=== PATIENT | male | born 1955 | race Caucasian/White ===

== ENCOUNTER 2019-01-11 22:28 | Inpatient (IN) ==
[2019-01-12] MEDS ORDERED: ALBUTEROL/IPRATROPIUM 3 ML NEB RESP TX STA (00:31)
[2019-01-12] MEDS ORDERED: ONDANSETRON 4 MG/2 ML VIAL IV STA (00:31)
[2019-01-12] MEDS ORDERED: methylPREDNISolone SOD SUC 125 MG/2 ML VIAL IV STA (00:31)
[2019-01-12] MEDS ORDERED: FUROSEMIDE 100 MG/10 ML VIAL IV STA (00:31)
[2019-01-12 00:58] LABS: Basophils # 0.1 10*3/uL (0.0-0.2); Basophils % 0.9 % (0.0-0.8); Eosinophils # 0.2 10*3/uL (0.0-0.87); Eosinophils % 2.6 % (0.00-10.9); Immature Granulocytes % 0.4 %; Immature Granulocytes Absolute 0.03 #; Lymphocytes % 12.8 % (21.2-54.2); Mean Corpuscular HGB Conc 34.6 GM/DL (32-36); Mean Corpuscular Volume 83.3 FL (87-102); Monocytes % 8.3 % (1.7-12.7); Platelet Count 278 T/CUMM (130-400); Red Blood Count 3.12 MC/CUMM (3.8-5.5); Red Cell Distribution Width 12.8 % (9.3-17.3); White Blood Count 7.6 T/CUMM (4-12)
[2019-01-12 01:06] LABS: Apearance,Urine CLEAR (Clear); Bacteria,Urine Occasional /HPF (Few); Bilirubin,Urine Negative (Negative); Blood, Urine Small mg/dL (Negative); Glucose,Urine (UA) Negative (Negative); Ketones,Urine Negative (Negative); Nitrite,Urine Negative (Negative); Protein,Urine 100 MG/DL; RBC,Urine 2 /HPF (0-4); Urine Color Straw (Yellow); Urine Specific Gravity 1.005 (1.001-1.035); Urine Urobilinogen < 2.0 EU/DL (0.2-1.0)
[2019-01-12 01:08] LABS: Barbiturates Screen,Urine Negative (Negative); Benzodiazepines Screen,Urine Negative (Negative); Cannabinoid Screen,Urine Negative (Negative); Opiate Screen,Urine Negative (Negative); Phencyclidine Screen,Urine Negative (Negative)
[2019-01-12 01:16] LABS: Albumin 3.2 G/DL (3.4-5.0); Bilirubin,Total 0.7 MG/DL (0.2-1.0); Calcium 9.3 MG/DL (8.5-10.1); Osmolality,Calculated 290.7 MOS/KG (273-304)
[2019-01-12] MEDS ORDERED: hydrALAZINE 20 MG/1 ML VIAL ONE (02:17)
[2019-01-12] MEDS ORDERED: hydrALAZINE 20 MG/1 ML VIAL IV STA (02:20)
[2019-01-12] MEDS ORDERED: ONDANSETRON 4 MG/2 ML VIAL IV PRN (02:31)
[2019-01-12] MEDS ORDERED: ACETAMINOPHEN 325 MG TABLET PO PRN (02:31)
[2019-01-12] MEDS ORDERED: GLUCAGON 1 MG VIAL IM PRN (02:31)
[2019-01-12] MEDS ORDERED: DEXTROSE 50% 25 GM/50 ML VIAL IV PRN (02:31)
[2019-01-12 03:20] LABS: Risk Ratio 2.7; Thyroid Stimulating Hormone 11.1 uIU/ml (0.358-3.74); VLDL CHOLESTEROL 14.8 MG/DL
[2019-01-12] MEDS ORDERED: INFLUENZA VIRUS VACCINE 0.5 ML SYRINGE IM ONE (04:01)
[2019-01-12] MEDS: FUROSEMIDE 40 MG/4 ML VIAL IV SCH ×2 (09:44→16:03)
[2019-01-12] MEDS: ENOXAPARIN 40 MG/0.4 ML SYRINGE SUBCUT SCH (09:47)
[2019-01-12] MEDS: INSULIN REGULAR 100 UNIT/ML SUBCUT SCH ×4 (09:48→20:29)
[2019-01-12] MEDS: carvediloL 12.5 MG TABLET PO SCH ×2 (09:48→20:29)
[2019-01-12] MEDS: PANTOPRAZOLE 40 MG TABLET PO SCH (09:48)
[2019-01-12] MEDS: DOXYCYCLINE HYCLATE 100 MG CAPSULE PO SCH ×2 (12:35→16:02)
[2019-01-12] MEDS: ASPIRIN EC 81 MG TABLET PO SCH (12:35)
[2019-01-12] MEDS: hydrALAZINE 25 MG TABLET PO SCH ×2 (12:35→20:29)
[2019-01-12] MEDS ORDERED: cefTRIAXone 2,000 MG in SYRINGE 1 EACH IV SCH (13:00)
[2019-01-12] MEDS: TAMSULOSIN 0.4 MG CAPSULE PO SCH (20:29)
[2019-01-13 04:48] LABS: Basophils % 0.4 % (0.0-0.8); Eosinophils # 0.1 10*3/uL (0.0-0.87); Eosinophils % 1.2 % (0.00-10.9); Hematocrit 21.4 VOL% (42.0-52.0); Hemoglobin 7.6 GM/DL (14.0-18.0); Immature Granulocytes % 0.3 %; Immature Granulocytes Absolute 0.02 #; Lymphocytes % 13.5 % (21.2-54.2); Mean Corpuscular HGB Conc 35.5 GM/DL (32-36); Mean Corpuscular Volume 81.7 FL (87-102); Mean Platelet Volume 10.5 FL (9.6-12.0); Monocytes % 9.3 % (1.7-12.7); Neutrophils % 75.3 % (38.7-73.9); Platelet Count 257 T/CUMM (130-400); Red Blood Count 2.62 MC/CUMM (3.8-5.5); Red Cell Distribution Width 12.9 % (9.3-17.3); White Blood Count 7.4 T/CUMM (4-12)
[2019-01-13 05:35] LABS: Calcium 8.5 MG/DL (8.5-10.1); Free T4 (Free Thyroxine) 0.95 NG/DL (0.76-1.46); Osmolality,Calculated 296.3 MOS/KG (273-304)
[2019-01-13 05:37] LABS: Folate 16.1 NG/ML (5.4-24.0); Vitamin B12 1837 PG/ML (211-911)
[2019-01-13 05:57] LABS: Sedimentation Rate-Westergren 85 MM/HR (0-20)
[2019-01-13 06:23] LABS: Ferritin 336.8 ng/ml (26-388)
[2019-01-13] MEDS ORDERED: POTASSIUM CHLORIDE 20 MEQ TABLET PO SCH (09:00)
[2019-01-13] MEDS: FUROSEMIDE 40 MG/4 ML VIAL IV SCH (09:37)
[2019-01-13] MEDS: INSULIN REGULAR 100 UNIT/ML SUBCUT SCH ×4 (09:37→20:58)
[2019-01-13] MEDS: ASPIRIN EC 81 MG TABLET PO SCH (09:38)
[2019-01-13] MEDS: hydrALAZINE 25 MG TABLET PO SCH ×2 (09:38→20:57)
[2019-01-13] MEDS: carvediloL 12.5 MG TABLET PO SCH ×2 (09:38→20:57)
[2019-01-13] MEDS: ENOXAPARIN 40 MG/0.4 ML SYRINGE SUBCUT SCH (09:38)
[2019-01-13] MEDS: DOXYCYCLINE HYCLATE 100 MG CAPSULE PO SCH (09:38)
[2019-01-13] MEDS: PANTOPRAZOLE 40 MG TABLET PO SCH (09:45)
[2019-01-13] MEDS: FLUTICASONE 50 MCG NASAL SPRAY 16 GM BOTTLE BOTH NARES SCH (10:10)
[2019-01-13] MEDS ORDERED: SODIUM CHLORIDE 0.9% 1,000 ML IV PRN (10:29)
[2019-01-13] MEDS: DOCUSATE SODIUM 100 MG CAPSULE PO SCH ×2 (12:13→20:57)
[2019-01-13] MEDS: LACTULOSE 20 GM/30 ML UDCUP PO SCH ×2 (12:13→20:58)
[2019-01-13] MEDS: POLYETHYLENE GLYCOL POWDER 17 GM PACK PO SCH ×2 (12:13→20:58)
[2019-01-13 16:38] LABS: Hemoglobin 9.1 GM/DL (14.0-18.0)
[2019-01-13] MEDS: TAMSULOSIN 0.4 MG CAPSULE PO SCH (20:57)
[2019-01-14 04:49] LABS: Basophils # 0.1 10*3/uL (0.0-0.2); Basophils % 0.8 % (0.0-0.8); Eosinophils # 0.3 10*3/uL (0.0-0.87); Eosinophils % 4.9 % (0.00-10.9); Hemoglobin 8.9 GM/DL (14.0-18.0); Immature Granulocytes % 0.3 %; Immature Granulocytes Absolute 0.02 #; Lymphocytes # 0.8 10*3/uL (1.4-4.0); Lymphocytes % 12.7 % (21.2-54.2); Mean Corpuscular HGB Conc 34.2 GM/DL (32-36); Mean Corpuscular Volume 83.3 FL (87-102); Mean Platelet Volume 10.4 FL (9.6-12.0); Monocytes % 11.5 % (1.7-12.7); Neutrophils % 69.8 % (38.7-73.9); Platelet Count 266 T/CUMM (130-400); Red Blood Count 3.12 MC/CUMM (3.8-5.5); Red Cell Distribution Width 12.9 % (9.3-17.3); White Blood Count 6.5 T/CUMM (4-12)
[2019-01-14 05:10] LABS: Calcium 8.1 MG/DL (8.5-10.1); Osmolality,Calculated 295.3 MOS/KG (273-304)
[2019-01-14] MEDS: LEVOTHYROXINE 25 MCG TABLET PO SCH (05:56)
[2019-01-14] MEDS: INSULIN REGULAR 100 UNIT/ML SUBCUT SCH ×4 (07:43→20:49)
[2019-01-14] MEDS: FUROSEMIDE 40 MG TABLET PO SCH (08:32)
[2019-01-14] MEDS: carvediloL 12.5 MG TABLET PO SCH ×2 (08:32→20:49)
[2019-01-14] MEDS: POTASSIUM CHLORIDE 20 MEQ TABLET PO SCH (08:32)
[2019-01-14] MEDS: ENOXAPARIN 40 MG/0.4 ML SYRINGE SUBCUT SCH (08:32)
[2019-01-14] MEDS: FLUTICASONE 50 MCG NASAL SPRAY 16 GM BOTTLE BOTH NARES SCH (08:32)
[2019-01-14] MEDS: POLYETHYLENE GLYCOL POWDER 17 GM PACK PO SCH ×2 (08:32→20:49)
[2019-01-14] MEDS: DOCUSATE SODIUM 100 MG CAPSULE PO SCH ×2 (08:32→20:49)
[2019-01-14] MEDS: LACTULOSE 20 GM/30 ML UDCUP PO SCH ×2 (08:32→20:49)
[2019-01-14] MEDS: ASPIRIN EC 81 MG TABLET PO SCH (08:32)
[2019-01-14] MEDS: hydrALAZINE 25 MG TABLET PO SCH (08:32)
[2019-01-14] MEDS: PANTOPRAZOLE 40 MG TABLET PO SCH (08:33)
[2019-01-14] MEDS ORDERED: hydrALAZINE 25 MG TABLET PO ONE (13:00)
[2019-01-14] MEDS: TAMSULOSIN 0.4 MG CAPSULE PO SCH (20:49)
[2019-01-15 04:00] LABS: Soluble Transf Receptor (sTfR) 3.7 mg/L (1.8 - 4.6)
[2019-01-15 05:53] LABS: Basophils # 0.1 10*3/uL (0.0-0.2); Basophils % 1.1 % (0.0-0.8); Eosinophils # 0.2 10*3/uL (0.0-0.87); Eosinophils % 4.1 % (0.00-10.9); Hematocrit 25.9 VOL% (42.0-52.0); Hemoglobin 8.9 GM/DL (14.0-18.0); Immature Granulocytes % 0.2 %; Immature Granulocytes Absolute 0.01 #; Lymphocytes # 0.7 10*3/uL (1.4-4.0); Lymphocytes % 15.3 % (21.2-54.2); Mean Corpuscular HGB Conc 34.4 GM/DL (32-36); Mean Corpuscular Volume 83.3 FL (87-102); Mean Platelet Volume 10.3 FL (9.6-12.0); Monocytes % 16.7 % (1.7-12.7); Neutrophils % 62.6 % (38.7-73.9); Platelet Count 247 T/CUMM (130-400); Red Blood Count 3.11 MC/CUMM (3.8-5.5); Red Cell Distribution Width 13.1 % (9.3-17.3); White Blood Count 4.4 T/CUMM (4-12)
[2019-01-15 06:25] LABS: Calcium 8.6 MG/DL (8.5-10.1); Osmolality,Calculated 295.8 MOS/KG (273-304)
[2019-01-15 06:26] LABS: Eosinophils 4 % (0-10); Lymphocytes 18 % (20-55); Segmented Neutrophils 75 % (50-85); Total Cells Counted 100
[2019-01-15 06:27] LABS: Platelet Estimate Normal; Polychromasia Few
[2019-01-15] MEDS: LEVOTHYROXINE 25 MCG TABLET PO SCH (06:27)
[2019-01-15] MEDS: INSULIN REGULAR 100 UNIT/ML SUBCUT SCH ×2 (08:59→13:13)
[2019-01-15] MEDS: ENOXAPARIN 40 MG/0.4 ML SYRINGE SUBCUT SCH (09:07)
[2019-01-15] MEDS: POTASSIUM CHLORIDE 20 MEQ TABLET PO SCH (09:09)
[2019-01-15] MEDS: LACTULOSE 20 GM/30 ML UDCUP PO SCH (09:09)
[2019-01-15] MEDS: carvediloL 12.5 MG TABLET PO SCH (09:09)
[2019-01-15] MEDS: FLUTICASONE 50 MCG NASAL SPRAY 16 GM BOTTLE BOTH NARES SCH (09:09)
[2019-01-15] MEDS: ASPIRIN EC 81 MG TABLET PO SCH (09:09)
[2019-01-15] MEDS: DOCUSATE SODIUM 100 MG CAPSULE PO SCH (09:09)
[2019-01-15] MEDS: PANTOPRAZOLE 40 MG TABLET PO SCH (09:10)
[2019-01-15] MEDS: FUROSEMIDE 40 MG TABLET PO SCH (09:10)
[2019-01-15] MEDS: POLYETHYLENE GLYCOL POWDER 17 GM PACK PO SCH (09:10)
[2019-01-15] MEDS ORDERED: carvediloL 12.5 MG TABLET PO SCH (09:49)
[2019-01-15 15:21] VITALS: BP 154/83
[2019-01-16 18:11] LABS: Variant 35.4 = Hb C %
[2019-01-19 07:58] LABS: Hemoglobin A1 (Alkaline) 60.7 % (96.5-98.5); Hemoglobin A2 (Alkaline) 3.9 % (1.5-3.5); Hemoglobin C (Alkaline) 35.4 %
== END 2019-01-15 15:27 | disposition home or self-care (01) | DRG 291 ==
LOC: N.ED 22:28 → N.EDINP 01-12 02:31 → N.5E 01-12 02:58
PROVIDERS: ADMIT Hospitalist; ATTEND Hospitalist

== ENCOUNTER 2021-03-23 14:19 | Inpatient (IN) ==
[2021-03-23] MEDS ORDERED: FUROSEMIDE 100 MG/10 ML VIAL IV STA (15:17)
[2021-03-23 16:24] LABS: Basophils % 0.7 % (0.0-0.8); Eosinophils # 0.2 10*3/uL (0.0-0.87); Eosinophils % 3.2 % (0.00-10.9); Hematocrit 26.5 VOL% (42.0-52.0); Immature Granulocytes % 0.4 %; Immature Granulocytes Absolute 0.02 #; Lymphocytes # 0.4 10*3/uL (1.4-4.0); Lymphocytes % 6.6 % (21.2-54.2); Mean Corpuscular Volume 86.3 FL (87-102); Mean Platelet Volume 10.2 FL (9.6-12.0); Monocytes % 8.2 % (1.7-12.7); Neutrophils % 80.9 % (38.7-73.9); Platelet Count 242 T/CUMM (130-400); Red Blood Count 3.07 MC/CUMM (3.8-5.5); Red Cell Distribution Width 13.4 % (9.3-17.3); White Blood Count 5.6 T/CUMM (4-12)
[2021-03-23 16:47] LABS: Bilirubin,Urine Negative (Negative); Blood, Urine Moderate mg/dL (Negative); Glucose,Urine (UA) Negative (Negative); Ketones,Urine Negative (Negative); Mucus,Urine Occasional /LPF (Occasional); Nitrite,Urine Negative (Negative); Protein,Urine 100 MG/DL; RBC,Urine 1 /HPF (0-4); Sperm,Urine Occasional /HPF (Negative); Squamous Epithelial Cell,Urine Occasional /HPF (0-10); Urine Appearance Slightly Hazy (Clear); Urine Color Yellow (Yellow); Urine Specific Gravity 1.014 (1.001-1.035); Urine Urobilinogen < 2.0 EU/DL (<2.0)
[2021-03-23 16:49] LABS: Albumin 3.2 G/DL (3.4-5.0); Bilirubin,Total 1.2 MG/DL (0.20-1.00); Calcium 9.5 MG/DL (8.5-10.1); Osmolality,Calculated 300.4 MOS/KG (273-304); Potassium 5.1 MMOL/L (3.5-5.1); Total Protein 7.5 G/DL (6.4-8.2)
[2021-03-23] MEDS ORDERED: hydrALAZINE 20 MG/1 ML VIAL IV STA (17:01)
[2021-03-23] MEDS ORDERED: hydrALAZINE 20 MG/1 ML VIAL IV PRN (18:08)
[2021-03-23] MEDS ORDERED: ACETAMINOPHEN 325 MG TABLET PO PRN (18:08)
[2021-03-23] MEDS ORDERED: MAGNESIUM SULF RIDER 4 GM/100 ML PREMIX IV PRN (18:08)
[2021-03-23] MEDS ORDERED: ONDANSETRON 4 MG/2 ML VIAL IV PRN (18:08)
[2021-03-23] MEDS ORDERED: DEXTROSE 50% 25 GM/50 ML SYRINGE IV PRN (18:08)
[2021-03-23] MEDS ORDERED: GLUCAGON 1 MG VIAL IM PRN (18:08)
[2021-03-23] MEDS ORDERED: MAGNESIUM SULF RIDER 2 GM/50 ML PREMIX IV PRN (18:08)
[2021-03-23] MEDS: DOCUSATE SODIUM 100 MG CAPSULE PO SCH (21:14)
[2021-03-23] MEDS: carvediloL 25 MG TABLET PO SCH (21:14)
[2021-03-23] MEDS: ENOXAPARIN 30 MG/0.3 ML SYRINGE SUBCUT SCH (21:14)
[2021-03-23] MEDS: TAMSULOSIN 0.4 MG CAPSULE PO SCH (21:14)
[2021-03-23] MEDS: SIMVASTATIN 40 MG TABLET PO SCH (21:15)
[2021-03-23] MEDS: INSULIN REGULAR 100 UNIT/ML SUBCUT SCH (22:03)
[2021-03-24 03:32] LABS: Basophils % 0.7 % (0.0-0.8); Eosinophils # 0.1 10*3/uL (0.0-0.87); Eosinophils % 2.3 % (0.00-10.9); Hematocrit 24.9 VOL% (42.0-52.0); Hemoglobin 8.4 GM/DL (14.0-18.0); Immature Granulocytes % 0.5 %; Immature Granulocytes Absolute 0.02 #; Lymphocytes # 0.3 10*3/uL (1.4-4.0); Lymphocytes % 7.8 % (21.2-54.2); Mean Corpuscular HGB Conc 33.7 GM/DL (32-36); Mean Corpuscular Volume 86.5 FL (87-102); Mean Platelet Volume 9.4 FL (9.6-12.0); Monocytes % 9.6 % (1.7-12.7); Neutrophils % 79.1 % (38.7-73.9); Platelet Count 206 T/CUMM (130-400); Red Blood Count 2.88 MC/CUMM (3.8-5.5); Red Cell Distribution Width 13.4 % (9.3-17.3); White Blood Count 4.4 T/CUMM (4-12)
[2021-03-24 03:53] LABS: Albumin 2.7 G/DL (3.4-5.0); Bilirubin,Total 0.8 MG/DL (0.20-1.00); Osmolality,Calculated 303.3 MOS/KG (273-304); Potassium 4.8 MMOL/L (3.5-5.1); Total Protein 6.3 G/DL (6.4-8.2)
[2021-03-24] MEDS: LEVOTHYROXINE 25 MCG TABLET PO SCH (05:35)
[2021-03-24] MEDS: INSULIN REGULAR 100 UNIT/ML SUBCUT SCH ×4 (07:35→22:15)
[2021-03-24] MEDS ORDERED: FUROSEMIDE 40 MG/4 ML VIAL IV SCH (08:00)
[2021-03-24] MEDS: DOCUSATE SODIUM 100 MG CAPSULE PO SCH ×2 (08:22→22:14)
[2021-03-24] MEDS: FLUTICASONE 50 MCG NASAL SPRAY 16 GM BOTTLE BOTH NARES SCH (08:22)
[2021-03-24] MEDS: carvediloL 25 MG TABLET PO SCH ×2 (08:22→22:15)
[2021-03-24] MEDS: FUROSEMIDE 40 MG/4 ML VIAL IV SCH ×2 (08:22→16:31)
[2021-03-24] MEDS: PANTOPRAZOLE 40 MG TABLET PO SCH (08:23)
[2021-03-24] MEDS: ASPIRIN EC 81 MG TABLET PO SCH (08:23)
[2021-03-24 10:04] LABS: % Iron Saturation 19.1 % (18-50); Ferritin 142.2 ng/mL (26-388)
[2021-03-24 10:11] LABS: Folate 15.84 NG/ML (5.38-24.0); Vitamin B12 > 2000 PG/ML (211-911)
[2021-03-24] MEDS ORDERED: ALUMINUM/MAGNES/SIMETH MAX STR 30 ML UDCUP PO ONE (13:21)
[2021-03-24] MEDS ORDERED: SKIN HEALING OINT (AQUAPHOR) 50 GM TUBE TOP PRN (14:38)
[2021-03-24] MEDS: POLYETHYLENE GLYCOL POWDER 17 GM PACK PO SCH (16:31)
[2021-03-24] MEDS: SIMVASTATIN 40 MG TABLET PO SCH (22:14)
[2021-03-24] MEDS: TAMSULOSIN 0.4 MG CAPSULE PO SCH (22:15)
[2021-03-24] MEDS: ENOXAPARIN 30 MG/0.3 ML SYRINGE SUBCUT SCH (22:15)
[2021-03-25 05:39] LABS: Basophils % 0.4 % (0.0-0.8); Eosinophils # 0.1 10*3/uL (0.0-0.87); Eosinophils % 2.7 % (0.00-10.9); Hematocrit 24.5 VOL% (42.0-52.0); Hemoglobin 8.3 GM/DL (14.0-18.0); Immature Granulocytes % 0.4 %; Immature Granulocytes Absolute 0.02 #; Lymphocytes # 0.3 10*3/uL (1.4-4.0); Mean Corpuscular HGB Conc 33.9 GM/DL (32-36); Mean Corpuscular Volume 87.5 FL (87-102); Mean Platelet Volume 10.2 FL (9.6-12.0); Monocytes % 9.7 % (1.7-12.7); Neutrophils % 79.8 % (38.7-73.9); Platelet Count 214 T/CUMM (130-400); Red Cell Distribution Width 13.7 % (9.3-17.3); White Blood Count 4.8 T/CUMM (4-12)
[2021-03-25 05:52] LABS: Calcium 8.9 MG/DL (8.5-10.1); Osmolality,Calculated 303.4 MOS/KG (273-304)
[2021-03-25] MEDS: LEVOTHYROXINE 25 MCG TABLET PO SCH (05:52)
[2021-03-25] MEDS: INSULIN REGULAR 100 UNIT/ML SUBCUT SCH ×4 (07:44→20:53)
[2021-03-25] MEDS: FUROSEMIDE 40 MG/4 ML VIAL IV SCH ×2 (07:48→16:15)
[2021-03-25] MEDS: carvediloL 25 MG TABLET PO SCH ×2 (08:01→20:53)
[2021-03-25] MEDS: ASPIRIN EC 81 MG TABLET PO SCH (08:15)
[2021-03-25] MEDS: PANTOPRAZOLE 40 MG TABLET PO SCH (08:16)
[2021-03-25] MEDS: POLYETHYLENE GLYCOL POWDER 17 GM PACK PO SCH (08:16)
[2021-03-25] MEDS: FLUTICASONE 50 MCG NASAL SPRAY 16 GM BOTTLE BOTH NARES SCH (08:16)
[2021-03-25] MEDS: DOCUSATE SODIUM 100 MG CAPSULE PO SCH ×2 (08:16→20:53)
[2021-03-25] MEDS: TAMSULOSIN 0.4 MG CAPSULE PO SCH (20:52)
[2021-03-25] MEDS: SIMVASTATIN 40 MG TABLET PO SCH (20:53)
[2021-03-25] MEDS: ENOXAPARIN 30 MG/0.3 ML SYRINGE SUBCUT SCH (20:53)
[2021-03-26] MEDS: LEVOTHYROXINE 25 MCG TABLET PO SCH (05:31)
[2021-03-26 06:07] LABS: Basophils % 0.7 % (0.0-0.8); Eosinophils # 0.2 10*3/uL (0.0-0.87); Eosinophils % 3.5 % (0.00-10.9); Hematocrit 23.7 VOL% (42.0-52.0); Hemoglobin 7.9 GM/DL (14.0-18.0); Immature Granulocytes % 0.5 %; Immature Granulocytes Absolute 0.02 #; Lymphocytes # 0.4 10*3/uL (1.4-4.0); Lymphocytes % 9.3 % (21.2-54.2); Mean Corpuscular HGB Conc 33.3 GM/DL (32-36); Mean Corpuscular Volume 88.8 FL (87-102); Mean Platelet Volume 10.2 FL (9.6-12.0); Monocytes % 11.2 % (1.7-12.7); Neutrophils % 74.8 % (38.7-73.9); Platelet Count 216 T/CUMM (130-400); Red Blood Count 2.67 MC/CUMM (3.8-5.5); Red Cell Distribution Width 13.9 % (9.3-17.3); White Blood Count 4.3 T/CUMM (4-12)
[2021-03-26 06:31] LABS: Calcium 8.6 MG/DL (8.5-10.1); Osmolality,Calculated 304.5 MOS/KG (273-304); Potassium 4.7 MMOL/L (3.5-5.1)
[2021-03-26] MEDS: INSULIN REGULAR 100 UNIT/ML SUBCUT SCH ×4 (07:52→22:45)
[2021-03-26] MEDS: POLYETHYLENE GLYCOL POWDER 17 GM PACK PO SCH (09:00)
[2021-03-26] MEDS: DOCUSATE SODIUM 100 MG CAPSULE PO SCH ×2 (09:01→22:47)
[2021-03-26] MEDS: FLUTICASONE 50 MCG NASAL SPRAY 16 GM BOTTLE BOTH NARES SCH (09:01)
[2021-03-26] MEDS: PANTOPRAZOLE 40 MG TABLET PO SCH (09:01)
[2021-03-26] MEDS: ASPIRIN EC 81 MG TABLET PO SCH (09:01)
[2021-03-26] MEDS: carvediloL 25 MG TABLET PO SCH ×2 (09:01→22:47)
[2021-03-26] MEDS: FUROSEMIDE 40 MG/4 ML VIAL IV SCH ×3 (09:01→16:28)
[2021-03-26] MEDS: metOLazone 5 MG TABLET PO SCH (14:34)
[2021-03-26] MEDS: ENOXAPARIN 30 MG/0.3 ML SYRINGE SUBCUT SCH (22:46)
[2021-03-26] MEDS: SIMVASTATIN 40 MG TABLET PO SCH (22:46)
[2021-03-26] MEDS: TAMSULOSIN 0.4 MG CAPSULE PO SCH (22:47)
[2021-03-27] MEDS: LEVOTHYROXINE 25 MCG TABLET PO SCH (05:47)
[2021-03-27 05:58] LABS: Basophils % 0.7 % (0.0-0.8); Eosinophils # 0.1 10*3/uL (0.0-0.87); Eosinophils % 3.4 % (0.00-10.9); Hematocrit 24.4 VOL% (42.0-52.0); Hemoglobin 8.1 GM/DL (14.0-18.0); Immature Granulocytes % 0.5 %; Immature Granulocytes Absolute 0.02 #; Lymphocytes # 0.4 10*3/uL (1.4-4.0); Lymphocytes % 10.1 % (21.2-54.2); Mean Corpuscular HGB Conc 33.2 GM/DL (32-36); Mean Corpuscular Volume 88.7 FL (87-102); Mean Platelet Volume 10.1 FL (9.6-12.0); Monocytes % 11.1 % (1.7-12.7); Neutrophils % 74.2 % (38.7-73.9); Platelet Count 214 T/CUMM (130-400); Red Blood Count 2.75 MC/CUMM (3.8-5.5); Red Cell Distribution Width 13.9 % (9.3-17.3); White Blood Count 4.1 T/CUMM (4-12)
[2021-03-27 06:23] LABS: Calcium 8.6 MG/DL (8.5-10.1); Osmolality,Calculated 305.5 MOS/KG (273-304); Potassium 4.9 MMOL/L (3.5-5.1)
[2021-03-27] MEDS: DOCUSATE SODIUM 100 MG CAPSULE PO SCH ×2 (08:58→20:14)
[2021-03-27] MEDS: INSULIN REGULAR 100 UNIT/ML SUBCUT SCH ×4 (08:58→20:17)
[2021-03-27] MEDS: carvediloL 25 MG TABLET PO SCH ×2 (08:58→20:14)
[2021-03-27] MEDS: metOLazone 5 MG TABLET PO SCH (08:58)
[2021-03-27] MEDS: ASPIRIN EC 81 MG TABLET PO SCH (08:58)
[2021-03-27] MEDS: PANTOPRAZOLE 40 MG TABLET PO SCH (08:58)
[2021-03-27] MEDS: FLUTICASONE 50 MCG NASAL SPRAY 16 GM BOTTLE BOTH NARES SCH (08:59)
[2021-03-27] MEDS: FUROSEMIDE 40 MG/4 ML VIAL IV SCH ×2 (08:59→16:52)
[2021-03-27] MEDS: POLYETHYLENE GLYCOL POWDER 17 GM PACK PO SCH (08:59)
[2021-03-27] MEDS: TAMSULOSIN 0.4 MG CAPSULE PO SCH (20:14)
[2021-03-27] MEDS: SIMVASTATIN 40 MG TABLET PO SCH (20:14)
[2021-03-28 06:04] LABS: Eosinophils # 0.1 10*3/uL (0.0-0.87); Eosinophils % 3.4 % (0.00-10.9); Hematocrit 23.1 VOL% (42.0-52.0); Hemoglobin 7.7 GM/DL (14.0-18.0); Immature Granulocytes % 0.3 %; Immature Granulocytes Absolute 0.01 #; Lymphocytes # 0.4 10*3/uL (1.4-4.0); Lymphocytes % 9.1 % (21.2-54.2); Mean Corpuscular HGB Conc 33.3 GM/DL (32-36); Mean Corpuscular Volume 88.8 FL (87-102); Monocytes % 11.7 % (1.7-12.7); Neutrophils % 74.5 % (38.7-73.9); Platelet Count 220 T/CUMM (130-400); Red Cell Distribution Width 13.9 % (9.3-17.3); White Blood Count 3.9 T/CUMM (4-12)
[2021-03-28] MEDS: LEVOTHYROXINE 25 MCG TABLET PO SCH (06:05)
[2021-03-28 06:15] LABS: Calcium 8.6 MG/DL (8.5-10.1); Osmolality,Calculated 304.7 MOS/KG (273-304); Potassium 4.7 MMOL/L (3.5-5.1)
[2021-03-28] MEDS: PANTOPRAZOLE 40 MG TABLET PO SCH (08:26)
[2021-03-28] MEDS: carvediloL 25 MG TABLET PO SCH ×2 (08:27→21:37)
[2021-03-28] MEDS: ASPIRIN EC 81 MG TABLET PO SCH (08:27)
[2021-03-28] MEDS: metOLazone 5 MG TABLET PO SCH (08:27)
[2021-03-28] MEDS: DOCUSATE SODIUM 100 MG CAPSULE PO SCH ×2 (08:27→21:46)
[2021-03-28] MEDS: FUROSEMIDE 40 MG/4 ML VIAL IV SCH ×2 (08:28→15:11)
[2021-03-28] MEDS: INSULIN REGULAR 100 UNIT/ML SUBCUT SCH ×4 (08:41→21:46)
[2021-03-28] MEDS: POLYETHYLENE GLYCOL POWDER 17 GM PACK PO SCH (08:41)
[2021-03-28 11:48] LABS: Hepatitis B Core IgM Quant 0.11 Index; Hepatitis B Surface Ag Quant < 0.10 Index; Hepatitis B Surface Ag Result Non-Reactive (NonReactive); Hepatitis C Virus Ab Quant 0.06 Index; Hepatitis C Virus Ab Result Non-Reactive (NonReactive)
[2021-03-28] MEDS: HEPARIN 5,000 UNIT/1 ML VIAL SUBCUT SCH (11:55)
[2021-03-28] MEDS: TAMSULOSIN 0.4 MG CAPSULE PO SCH (21:36)
[2021-03-28] MEDS: SIMVASTATIN 40 MG TABLET PO SCH (21:37)
[2021-03-29] MEDS: LEVOTHYROXINE 25 MCG TABLET PO SCH (05:45)
[2021-03-29 05:59] LABS: Basophils % 0.7 % (0.0-0.8); Eosinophils # 0.1 10*3/uL (0.0-0.87); Eosinophils % 2.9 % (0.00-10.9); Hematocrit 24.4 VOL% (42.0-52.0); Hemoglobin 8.1 GM/DL (14.0-18.0); Immature Granulocytes % 0.2 %; Immature Granulocytes Absolute 0.01 #; Lymphocytes # 0.4 10*3/uL (1.4-4.0); Lymphocytes % 9.3 % (21.2-54.2); Mean Corpuscular HGB Conc 33.2 GM/DL (32-36); Mean Corpuscular Volume 88.1 FL (87-102); Mean Platelet Volume 10.3 FL (9.6-12.0); Monocytes % 10.4 % (1.7-12.7); Neutrophils % 76.5 % (38.7-73.9); Platelet Count 221 T/CUMM (130-400); Red Blood Count 2.77 MC/CUMM (3.8-5.5); Red Cell Distribution Width 13.9 % (9.3-17.3); White Blood Count 4.5 T/CUMM (4-12)
[2021-03-29 06:30] LABS: Calcium 8.8 MG/DL (8.5-10.1); Osmolality,Calculated 302.7 MOS/KG (273-304); Potassium 4.5 MMOL/L (3.5-5.1)
[2021-03-29] MEDS: INSULIN REGULAR 100 UNIT/ML SUBCUT SCH ×4 (08:15→21:32)
[2021-03-29] MEDS: FUROSEMIDE 40 MG/4 ML VIAL IV SCH ×2 (08:59→18:05)
[2021-03-29] MEDS: PANTOPRAZOLE 40 MG TABLET PO SCH (08:59)
[2021-03-29] MEDS: ASPIRIN EC 81 MG TABLET PO SCH (08:59)
[2021-03-29] MEDS: carvediloL 25 MG TABLET PO SCH ×2 (08:59→21:31)
[2021-03-29] MEDS: POLYETHYLENE GLYCOL POWDER 17 GM PACK PO SCH (09:02)
[2021-03-29] MEDS: DOCUSATE SODIUM 100 MG CAPSULE PO SCH ×2 (09:02→21:31)
[2021-03-29] MEDS: metOLazone 5 MG TABLET PO SCH (09:03)
[2021-03-29] MEDS ORDERED: CLINDAMYCIN INJ 900 MG/50 ML PREMIX IV ONE (10:15)
[2021-03-29] MEDS ORDERED: HEPARIN 5,000 UNIT/1 ML VIAL ONE (12:19)
[2021-03-29] MEDS ORDERED: BUPIVACAINE MPF 0.25% 30 ML VIAL ONE (12:19)
[2021-03-29] MEDS ORDERED: LIDOCAINE 1%/EPI INJ 20 ML VIAL ONE (12:19)
[2021-03-29] MEDS ORDERED: LIDOCAINE 2% 5 ML VIAL ONE (12:30)
[2021-03-29] MEDS ORDERED: propofoL 200 MG/20 ML VIAL IV ONE (12:30)
[2021-03-29] MEDS ORDERED: MIDAZOLAM 2 MG/2 ML VIAL ONE (12:30)
[2021-03-29] MEDS ORDERED: fentaNYL 100 MCG/2 ML VIAL ONE (12:30)
[2021-03-29] MEDS ORDERED: ceFAZolin 1,000 MG VIAL ONE (13:11)
[2021-03-29] MEDS ORDERED: flumazeniL 0.5 MG/5 ML VIAL IV ONE (13:38)
[2021-03-29] MEDS ORDERED: NALOXONE 0.4 MG/ML VIAL ONE (13:40)
[2021-03-29] MEDS ORDERED: ALBUTEROL/IPRATROPIUM 3 ML NEB RESP TX ONE (13:41)
[2021-03-29] MEDS ORDERED: HEPARIN 10,000 UNIT/10 ML VIAL IV ONE (15:15)
[2021-03-29] MEDS: TAMSULOSIN 0.4 MG CAPSULE PO SCH (21:31)
[2021-03-29] MEDS: SIMVASTATIN 40 MG TABLET PO SCH (21:31)
[2021-03-30 05:31] LABS: Basophils % 0.5 % (0.0-0.8); Eosinophils # 0.1 10*3/uL (0.0-0.87); Eosinophils % 0.8 % (0.00-10.9); Hematocrit 24.2 VOL% (42.0-52.0); Immature Granulocytes % 0.5 %; Immature Granulocytes Absolute 0.03 #; Lymphocytes # 0.3 10*3/uL (1.4-4.0); Lymphocytes % 4.7 % (21.2-54.2); Mean Corpuscular HGB Conc 33.1 GM/DL (32-36); Mean Corpuscular Volume 88.3 FL (87-102); Mean Platelet Volume 9.9 FL (9.6-12.0); Monocytes % 5.6 % (1.7-12.7); Neutrophils % 87.9 % (38.7-73.9); Platelet Count 224 T/CUMM (130-400); Red Blood Count 2.74 MC/CUMM (3.8-5.5); Red Cell Distribution Width 13.8 % (9.3-17.3); White Blood Count 6.6 T/CUMM (4-12)
[2021-03-30] MEDS: LEVOTHYROXINE 25 MCG TABLET PO SCH (05:44)
[2021-03-30 05:45] LABS: Calcium 8.7 MG/DL (8.5-10.1); Osmolality,Calculated 300.8 MOS/KG (273-304); Potassium 4.5 MMOL/L (3.5-5.1)
[2021-03-30 05:57] LABS: Lymphocytes 3 % (20-55); Segmented Neutrophils 91 % (50-85); Total Cells Counted 100
[2021-03-30 05:58] LABS: Hypochromasia 1+; Microcytosis 1+; Platelet Estimate Adequate
[2021-03-30] MEDS: INSULIN REGULAR 100 UNIT/ML SUBCUT SCH ×4 (08:46→21:03)
[2021-03-30] MEDS ORDERED: HEPARIN 10,000 UNIT/10 ML VIAL IV SCH (09:30)
[2021-03-30] MEDS ORDERED: EPOETIN ALFA-EPBX 10,000 UNIT/ML VIAL IV PRN (10:58)
[2021-03-30] MEDS ORDERED: IRON SUCROSE 100 MG/5 ML VIAL IV SCH (11:00)
[2021-03-30] MEDS: carvediloL 25 MG TABLET PO SCH ×2 (12:56→21:03)
[2021-03-30] MEDS: ASPIRIN EC 81 MG TABLET PO SCH (12:56)
[2021-03-30] MEDS: PANTOPRAZOLE 40 MG TABLET PO SCH (12:56)
[2021-03-30] MEDS: DOCUSATE SODIUM 100 MG CAPSULE PO SCH ×2 (12:56→21:04)
[2021-03-30] MEDS: POLYETHYLENE GLYCOL POWDER 17 GM PACK PO SCH (12:57)
[2021-03-30] MEDS: FERRIC GLUCONATE COMPLEX 125 MG in SODIUM CHLORIDE 0.9% 100 ML IV SCH (12:57)
[2021-03-30] MEDS: HEPARIN 5,000 UNIT/1 ML VIAL SUBCUT SCH ×2 (12:58→21:03)
[2021-03-30] MEDS ORDERED: ALUM/MAG/SIMETH/LIDO VISC 1:1 30 ML BOTTLE PO PRN (15:52)
[2021-03-30] MEDS: SIMVASTATIN 40 MG TABLET PO SCH (21:03)
[2021-03-30] MEDS: TAMSULOSIN 0.4 MG CAPSULE PO SCH (21:03)
[2021-03-31 06:03] LABS: Basophils % 0.5 % (0.0-0.8); Eosinophils # 0.1 10*3/uL (0.0-0.87); Hematocrit 23.5 VOL% (42.0-52.0); Hemoglobin 7.9 GM/DL (14.0-18.0); Immature Granulocytes % 0.2 %; Immature Granulocytes Absolute 0.01 #; Lymphocytes # 0.4 10*3/uL (1.4-4.0); Mean Corpuscular HGB Conc 33.6 GM/DL (32-36); Mean Platelet Volume 10.3 FL (9.6-12.0); Monocytes % 11.6 % (1.7-12.7); Neutrophils % 75.7 % (38.7-73.9); Platelet Count 216 T/CUMM (130-400); Red Blood Count 2.67 MC/CUMM (3.8-5.5); Red Cell Distribution Width 13.8 % (9.3-17.3); White Blood Count 4.4 T/CUMM (4-12)
[2021-03-31] MEDS: LEVOTHYROXINE 25 MCG TABLET PO SCH (06:03)
[2021-03-31 06:20] LABS: Calcium 8.6 MG/DL (8.5-10.1); Osmolality,Calculated 298.5 MOS/KG (273-304); Potassium 4.4 MMOL/L (3.5-5.1)
[2021-03-31] MEDS: INSULIN REGULAR 100 UNIT/ML SUBCUT SCH ×4 (08:16→20:34)
[2021-03-31] MEDS: FERRIC GLUCONATE COMPLEX 125 MG in SODIUM CHLORIDE 0.9% 100 ML IV SCH (12:11)
[2021-03-31] MEDS: carvediloL 25 MG TABLET PO SCH ×2 (12:12→20:34)
[2021-03-31] MEDS: ASPIRIN EC 81 MG TABLET PO SCH (12:12)
[2021-03-31] MEDS: DOCUSATE SODIUM 100 MG CAPSULE PO SCH ×2 (12:13→20:34)
[2021-03-31] MEDS: PANTOPRAZOLE 40 MG TABLET PO SCH (12:13)
[2021-03-31] MEDS: HEPARIN 5,000 UNIT/1 ML VIAL SUBCUT SCH ×2 (12:14→20:35)
[2021-03-31] MEDS: SIMETHICONE CHEW 80 MG TABLET PO SCH ×3 (12:14→20:33)
[2021-03-31] MEDS: POLYETHYLENE GLYCOL POWDER 17 GM PACK PO SCH ×2 (12:59→20:33)
[2021-03-31] MEDS: SIMVASTATIN 40 MG TABLET PO SCH (20:34)
[2021-03-31] MEDS: TAMSULOSIN 0.4 MG CAPSULE PO SCH (20:34)
[2021-04-01 05:04] LABS: Basophils % 0.9 % (0.0-0.8); Eosinophils # 0.1 10*3/uL (0.0-0.87); Eosinophils % 3.1 % (0.00-10.9); Hematocrit 24.5 VOL% (42.0-52.0); Hemoglobin 8.2 GM/DL (14.0-18.0); Immature Granulocytes % 0.2 %; Immature Granulocytes Absolute 0.01 #; Lymphocytes # 0.4 10*3/uL (1.4-4.0); Lymphocytes % 9.2 % (21.2-54.2); Mean Corpuscular HGB Conc 33.5 GM/DL (32-36); Mean Corpuscular Volume 88.8 FL (87-102); Mean Platelet Volume 10.6 FL (9.6-12.0); Monocytes % 13.4 % (1.7-12.7); Neutrophils % 73.2 % (38.7-73.9); Platelet Count 214 T/CUMM (130-400); Red Blood Count 2.76 MC/CUMM (3.8-5.5); Red Cell Distribution Width 13.9 % (9.3-17.3); White Blood Count 4.6 T/CUMM (4-12)
[2021-04-01 05:27] LABS: Calcium 8.5 MG/DL (8.5-10.1); Osmolality,Calculated 292.7 MOS/KG (273-304); Potassium 4.2 MMOL/L (3.5-5.1)
[2021-04-01] MEDS: LEVOTHYROXINE 25 MCG TABLET PO SCH (05:56)
[2021-04-01] MEDS: INSULIN REGULAR 100 UNIT/ML SUBCUT SCH ×4 (08:51→21:12)
[2021-04-01] MEDS: POLYETHYLENE GLYCOL POWDER 17 GM PACK PO SCH ×2 (09:56→21:11)
[2021-04-01] MEDS: PANTOPRAZOLE 40 MG TABLET PO SCH ×2 (09:57→21:10)
[2021-04-01] MEDS: carvediloL 25 MG TABLET PO SCH ×2 (09:57→21:10)
[2021-04-01] MEDS: ASPIRIN EC 81 MG TABLET PO SCH (09:57)
[2021-04-01] MEDS: SIMETHICONE CHEW 80 MG TABLET PO SCH ×4 (09:57→21:10)
[2021-04-01] MEDS: FERRIC GLUCONATE COMPLEX 125 MG in SODIUM CHLORIDE 0.9% 100 ML IV SCH (09:57)
[2021-04-01] MEDS: DOCUSATE SODIUM 100 MG CAPSULE PO SCH ×2 (09:57→21:10)
[2021-04-01] MEDS: HEPARIN 5,000 UNIT/1 ML VIAL SUBCUT SCH ×2 (09:58→21:11)
[2021-04-01] MEDS ORDERED: ALUM/MAG/SIMETH/LIDO VISC 1:1 30 ML BOTTLE PO PRN (13:05)
[2021-04-01] MEDS: TAMSULOSIN 0.4 MG CAPSULE PO SCH (21:10)
[2021-04-01] MEDS: SIMVASTATIN 40 MG TABLET PO SCH (21:11)
[2021-04-02] MEDS: LEVOTHYROXINE 25 MCG TABLET PO SCH (05:53)
[2021-04-02 06:53] LABS: Basophils # 0.1 10*3/uL (0.0-0.2); Basophils % 1.2 % (0.0-0.8); Eosinophils # 0.2 10*3/uL (0.0-0.87); Eosinophils % 4.2 % (0.00-10.9); Hematocrit 24.9 VOL% (42.0-52.0); Hemoglobin 8.3 GM/DL (14.0-18.0); Immature Granulocytes % 0.5 %; Immature Granulocytes Absolute 0.02 #; Lymphocytes # 0.5 10*3/uL (1.4-4.0); Lymphocytes % 10.7 % (21.2-54.2); Mean Corpuscular HGB Conc 33.3 GM/DL (32-36); Mean Corpuscular Volume 88.9 FL (87-102); Mean Platelet Volume 10.3 FL (9.6-12.0); Monocytes % 13.3 % (1.7-12.7); Neutrophils % 70.1 % (38.7-73.9); Platelet Count 214 T/CUMM (130-400); Red Cell Distribution Width 13.7 % (9.3-17.3); White Blood Count 4.3 T/CUMM (4-12)
[2021-04-02 07:19] LABS: Calcium 8.9 MG/DL (8.5-10.1); Osmolality,Calculated 291.7 MOS/KG (273-304); Potassium 4.5 MMOL/L (3.5-5.1)
[2021-04-02] MEDS: SIMETHICONE CHEW 80 MG TABLET PO SCH ×4 (09:52→21:29)
[2021-04-02] MEDS: FERRIC GLUCONATE COMPLEX 125 MG in SODIUM CHLORIDE 0.9% 100 ML IV SCH (09:52)
[2021-04-02] MEDS: PANTOPRAZOLE 40 MG TABLET PO SCH ×2 (09:52→21:29)
[2021-04-02] MEDS: POLYETHYLENE GLYCOL POWDER 17 GM PACK PO SCH ×2 (09:52→21:30)
[2021-04-02] MEDS: carvediloL 25 MG TABLET PO SCH ×2 (09:52→21:30)
[2021-04-02] MEDS: INSULIN REGULAR 100 UNIT/ML SUBCUT SCH ×4 (09:53→21:30)
[2021-04-02] MEDS: DOCUSATE SODIUM 100 MG CAPSULE PO SCH ×2 (09:53→21:29)
[2021-04-02] MEDS: HEPARIN 5,000 UNIT/1 ML VIAL SUBCUT SCH ×2 (09:53→21:31)
[2021-04-02] MEDS: ASPIRIN EC 81 MG TABLET PO SCH (09:53)
[2021-04-02] MEDS: SIMVASTATIN 40 MG TABLET PO SCH (21:29)
[2021-04-02] MEDS: TAMSULOSIN 0.4 MG CAPSULE PO SCH (21:29)
[2021-04-03] MEDS: LEVOTHYROXINE 25 MCG TABLET PO SCH (05:42)
[2021-04-03] MEDS: INSULIN REGULAR 100 UNIT/ML SUBCUT SCH (07:49)
[2021-04-03 08:03] VITALS: BP 131/74
[2021-04-03] MEDS: DOCUSATE SODIUM 100 MG CAPSULE PO SCH (09:08)
[2021-04-03] MEDS: POLYETHYLENE GLYCOL POWDER 17 GM PACK PO SCH (09:08)
[2021-04-03] MEDS: SIMETHICONE CHEW 80 MG TABLET PO SCH (09:08)
[2021-04-03] MEDS: HEPARIN 5,000 UNIT/1 ML VIAL SUBCUT SCH (09:08)
[2021-04-03] MEDS: carvediloL 25 MG TABLET PO SCH (09:08)
[2021-04-03] MEDS: ASPIRIN EC 81 MG TABLET PO SCH (09:08)
[2021-04-03] MEDS: PANTOPRAZOLE 40 MG TABLET PO SCH (09:08)
[2021-04-03] MEDS: FERRIC GLUCONATE COMPLEX 125 MG in SODIUM CHLORIDE 0.9% 100 ML IV SCH (09:13)
[2021-04-03] MEDS ORDERED: LACTULOSE 20 GM/30 ML UDCUP PO STA (09:38)
[2021-04-03] MEDS ORDERED: MAGNESIUM HYDROXIDE SUSP 30 ML UDCUP PO STA (09:38)
== END 2021-04-03 11:30 | disposition home or self-care (01) | DRG 291 ==
LOC: N.ED 14:19 → N.3E 18:08 → SUATTDRO 18:08 → N.3E 22:09
PROVIDERS: ADMIT Internal Medicine; ATTEND Internal Medicine